=== PATIENT | male | born 2000 | race Caucasian/White ===

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

== ENCOUNTER 2019-01-09 19:52 | Emergency (ER) | payer SELFPAY ==
[~2019-01-09] VITALS: Ht 160 cm; Wt 90.9 kg
[2019-01-09 20:20] VITALS: Ht 160 cm; Wt 90.9 kg
[2019-01-09] MEDS ORDERED: CYCLOBENZAPRINE10 MG PO (21:16)
[2019-01-09] MEDS ORDERED: IBUPROFEN800 MG PO (21:16)
[2019-01-09] MEDS ORDERED: ACETAMINOPHEN500 M1 PO (21:16)
[2019-01-09 21:36] VITALS: BP 117/66
== END 2019-01-09 21:35 | disposition home or self-care (01) ==
LOC: D.ER 19:52
DX: S16.1XXA Strain of muscle, fascia and tendon at neck level, initial encounter (principal); X58.XXXA Exposure to other specified factors, initial encounter; Y93.89 Activity, other specified; Y92.89 Other specified places as the place of occurrence of the external cause